=== PATIENT | male | born 1995 | race Hispanic/Latino ===

== ENCOUNTER 2020-02-02 00:23 | Emergency (ER) | payer OTHER ==
[2020-02-02] MEDS ORDERED: LIDOCAINE HCL 1% 20 ML VIAL ONE (00:56)
== END 2020-02-02 02:56 | disposition home or self-care (01) ==
LOC: EDH 00:23
DX: L02.219 Cutaneous abscess of trunk, unspecified (principal)
CPT/HCPCS: 10060